=== PATIENT | female | born 1960 | race Caucasian/White ===

== ENCOUNTER 2017-05-15 12:04 | Emergency (ER) | payer BC ==
--- NOTE | 2017-05-15 14:02 | UC ---
Back Pain HPI - HPI Summary HPI Summary: recurrent history of low back pain and muscle strain with radiation to the right leg. No paresthesias or urinary incontinence. Has been using ice, heat and ibuprofen about 1600mg yesterday without relief. Muscle relaxants have been helpful in the past. Relieves by sleeping with a pillow between her legs. Was doing gloria regularly, but stopped, and now has increasing weight, blood pressure and recurrent back pain. No urinary or fecal incontinence. - History of Current Complaint Chief Complaint: UCBackPain Stated Complaint: BACK PAIN Time Seen by Provider: 05/15/17 13:51 Hx Obtained From: Patient Onset/Duration: Gradual Onset, Lasting Days - 2 Timing: Constant Severity Initially: Moderate Severity Currently: Moderate Pain Intensity: 7 Pain Scale Used: 0-10 Numeric Back Pain: Is Diffuse Character: Dull, Aching Aggravating Factor(s): Movement, Walking Alleviating Factor(s): Rest, Cold Associated Signs And Symptoms: Positive: Negative Related History: Previous Back Injury - Risk Factors AAA Risk Factors: Negative TAD Risk Factors: Negative Cauda Equina Risk Factors: Negative Epidural Abscess Risk Factors: Negative - Allergies/Home Medications Allergies/Adverse Reactions: Allergies Allergy/AdvReac Type Severity Reaction Status Date / Time No Known Allergies Allergy Verified 05/15/17 13:39 PMH/Surg Hx/FS Hx/Imm Hx Endocrine History: Hypothyroidism Cardiovascular History: Hypertension - Surgical History Surgical History: Yes Surgery Procedure, Year, and Place: HYSTERECTOMY. 2 C-SECTS. R ROTAR CUFF REPAIR. CHOLECYSTECTOMY. R ANKLE SX - Family History Known Family History: Positive: Cardiac Disease - mother of CHF, Hypertension, Other - father of CA colon - Social History Occupation: Employed Full-time - [employer] [place] Alcohol Use: Occasionally Substance Use Type: None Smoking Status (MU): Never Smoked Tobacco Type: Cigarettes Have You Smoked in the Last Year: No When Did the Patient Quit Smoking/Using Tobacco: 4 yrs ago - Immunization History Most Recent Influenza Vaccination: 2017 Review of Systems Constitutional: Fatigue - gradually increasing fatigue. Has been off levothyroxine for a month because PMD will not renew due to bill balance. Skin: Negative Eyes: Negative ENT: Negative Respiratory: Negative Cardiovascular: Other - stopped lisinopril when blood pressure went too low-- decreased from 20 to 10 and then stopped. Has not been tracking BP as advised. Gastrointestinal: Negative Genitourinary: Negative Motor: Negative Neurovascular: Negative Musculoskeletal: Myalgia Neurological: Negative Psychological: Negative Is Patient Immunocompromised?: No All Other Systems Reviewed And Are Negative: Yes Physical Exam Triage Information Reviewed: Yes Appearance: Well-Appearing, Pain Distress - moderate., Obese Vital Signs: Initial Vital Signs Temp 96.6 F 05/15/17 13:41 Pulse 73 05/15/17 13:41 Resp 16 05/15/17 13:41 BP 169/100 05/15/17 13:41 Pulse Ox 99 05/15/17 13:41 Eyes: Positive: Conjunctiva Clear Respiratory: Positive: Lungs clear, Normal breath sounds Cardiovascular: Positive: RRR, No Murmur Abdomen Description: Positive: Nontender, No Organomegaly, Soft Musculoskeletal: Positive: ROM Limited @ - lumbar spine FF to 30 degrees, Antalgic gait. SLR to 90 degrees on the left, to 85 on the right. Hip rom is normal. Normal heel and toe walking. Neurological: Positive: Alert, Muscle Tone Normal Psychological Exam: Normal Skin Exam: Normal Back Pain Course/Dx - Course Course Of Treatment: add muscle relaxant to promote muscle relaxation and sleep. Continue nsaid--minimal use due to htn. resume thyroid medication and lisinopril pending re-establishment with Dr. Montelongo. - Differential Dx/Diagnosis Differential Diagnosis/HQI/PQRI: Herniated Disc, Strain, Sprain Provider Diagnoses: acute low back strain. hypertension. hypothyroidism Discharge - Discharge Plan Condition: Stable Disposition: HOME Prescriptions: Cyclobenzaprine TAB* [Flexeril 10 MG TAB*] 10 mg PO BEDTIME PRN #30 tab PRN Reason: Spasms - Back Levothyroxine TAB* [Synthroid 125 MCG TAB*] 125 mcg PO 0800 #90 tab Lisinopril [Zestril 5 MG-] 5 mg PO DAILY #90 tab Patient Education Materials: Low Back Strain (ED) Additional Instructions: use flexeril to relieve back spasm, continuing use of ibuprofen as needed. Resume use of lisinopril 5mg once daily with regular check of blood pressure. Ensure that you do home blood pressure checks at least twice per week. Resume use of levothyroxine once daily for treatment of thyroid dysfunction.
[2017-05-15 14:18] VITALS: BP 178/106
== END 2017-05-15 14:51 | disposition home or self-care (01) ==
LOC: UCCORT 12:04
DX: S39.012A Strain of muscle, fascia and tendon of lower back, initial encounter (principal); E03.9 Hypothyroidism, unspecified; I10 Essential (primary) hypertension; E07.9 Disorder of thyroid, unspecified; X58.XXXA Exposure to other specified factors, initial encounter
CPT/HCPCS: 99212; G0463

== ENCOUNTER 2022-07-22 05:36 | Observation (INO) ==
[~2022-07-22 05:36] MED LIST: Naloxone 0.4 mg VIAL 0.4 mg/ml 1 ml VIAL IV PRN; Ondansetron 4 mg VIAL 2 MG/ML 2 ml VIAL IV PRN; fentaNYL 100 mcg/2 ml 50 MCG/ML VIAL IV PRN
[2022-07-22] MEDS ORDERED: Buffered Lidocaine 1% SYRIN 1 ml INTRADERM ONE (06:00)
[2022-07-22] MEDS ORDERED: Lactated Ringers 1000 ml BAG 1,000 ML IV SCH ×2 (06:00→09:00)
[2022-07-22] MEDS ORDERED: ceFAZolin 2 GM PREMIX 2 GM/50 ML BAG ONE (06:24)
[2022-07-22] MEDS ORDERED: Ropivacaine 5 MG/ML 20 ML VIAL 0.5% (100 MG) ONE (07:00)
[2022-07-22] MEDS ORDERED: Propofol 10 MG/ML 20 ML BTL ONE (07:15)
[2022-07-22] MEDS ORDERED: fentaNYL 250 mcg/5 ml 50 MCG/ML 5 ml VIAL (250 MCG) ONE (07:15)
[2022-07-22] MEDS ORDERED: Midazolam 2 mg/2 ml VIAL 1 mg/ml 2 ml VIAL (2 mg) ONE (07:15)
[2022-07-22] MEDS ORDERED: Lidocaine 2% PF 5 ML VIAL ONE (07:15)
[2022-07-22] MEDS ORDERED: Rocuronium 50 mg VIAL 10 mg/ml 5 ml VIAL (50 mg) ONE (07:15)
[2022-07-22] MEDS ORDERED: Ondansetron 4 mg VIAL 2 MG/ML 2 ml VIAL ONE (08:09)
[2022-07-22] MEDS ORDERED: Ketamine HCL 50 mg/ml 10 ml VIAL (500 MG) ONE (08:09)
[2022-07-22] MEDS ORDERED: Dexamethasone IV 4 MG/ML VIAL 1 ml VIAL ONE (08:09)
[2022-07-22] MEDS ORDERED: Acetaminophen IV 1 GM/100ML 1,000 MG/100 ML BAG IV ONE (08:26)
[2022-07-22] MEDS ORDERED: Ondansetron 4 mg VIAL 2 MG/ML 2 ml VIAL IV PRN (08:59)
[2022-07-22] MEDS ORDERED: Morphine 2 MG/ML SYRINGE IV PRN (08:59)
[2022-07-22] MEDS ORDERED: Ondansetron ODT 4 mg TAB 4 MG TAB PO PRN (08:59)
[2022-07-22] MEDS ORDERED: Magnesium Hydroxide LIQ 30 ML UDC PO PRN (08:59)
[2022-07-22] MEDS ORDERED: Lactulose 30 ml UDC PO PRN (08:59)
[2022-07-22] MEDS ORDERED: Magnesium Hydroxide LIQ 30 ML UDC PO SCH (09:00)
[2022-07-22] MEDS ORDERED: Vitamin THERAPEUTIC TAB PO SCH (09:00)
[2022-07-22] MEDS ORDERED: fentaNYL 100 mcg/2 ml 50 MCG/ML VIAL ONE (11:21)
[2022-07-22 14:09] VITALS: BP 101/66
[2022-07-22] MEDS ORDERED: ceFAZolin 1 GM ADVAN 1 GM in NS 0.9% 50 ML 50 ML IVPB SCH (16:00)
== END 2022-07-22 16:30 | disposition home or self-care (01) ==
LOC: AA 05:36 → INTOOBSV 05:36 → SSU 08:59
PROVIDERS: ADMIT Orthopaedic Surgery Adult Reconstructive Orthopaedic Surgery; ATTEND Orthopaedic Surgery Adult Reconstructive Orthopaedic Surgery

== ENCOUNTER 2023-08-29 09:10 | Observation (INO) ==
[~2023-08-29 09:10] MED LIST changes: +Buffered Lidocaine 1% SYRIN 1 ml INTRADERM ONE; +Famotidine IV 10 MG/ML 2 ml VIAL (20 mg) IV ONE; +Lactated Ringers 1000 ml BAG 1,000 ML IV SCH; -fentaNYL 100 mcg/2 ml 50 MCG/ML VIAL IV PRN
[2023-08-29] MEDS ORDERED: Chlorhexidine MOUTHWASH 0.12% 15 ML UDC ONE (09:29)
[2023-08-29] MEDS ORDERED: ceFAZolin 2 GM in NS PREMIX 2 GM/100 ML BAG IVPB ONE (09:29)
[2023-08-29] MEDS ORDERED: Famotidine IV 10 MG/ML 2 ml VIAL (20 mg) ONE (09:47)
[2023-08-29 09:52] LABS: Rapid COVID-19 Molecular Undetected (Undetected)
[2023-08-29] MEDS ORDERED: fentaNYL 100 mcg/2 ml 50 MCG/ML VIAL ONE ×3 (10:30→15:02)
[2023-08-29] MEDS ORDERED: Midazolam 2 mg/2 ml VIAL 1 mg/ml 2 ml VIAL (2 mg) ONE (10:30)
[2023-08-29] MEDS ORDERED: Rocuronium 50 mg VIAL 10 mg/ml 5 ml VIAL (50 mg) ONE ×2 (10:31→14:08)
[2023-08-29] MEDS ORDERED: Propofol 10 MG/ML 20 ML BTL ONE ×2 (10:31→14:49)
[2023-08-29] MEDS ORDERED: Lidocaine 2% PF 5 ML VIAL ONE (10:31)
[2023-08-29] MEDS ORDERED: Gelfoam Sponge SIZE 100 SPONGE ONE (12:09)
[2023-08-29] MEDS ORDERED: Thrombin 5,000 UNITS(BOVINE) for Ultrasound Guided Pseudoaneursym ONE ×2 (12:09→14:23)
[2023-08-29] MEDS ORDERED: ceFAZolin VIAL VIAL ONE (12:09)
[2023-08-29] MEDS ORDERED: Lidocaine 1% w EPI 1:100,000 MDV 20 ML VIAL ONE (12:09)
[2023-08-29] MEDS ORDERED: Dexamethasone IV 4 MG/ML VIAL 1 ml VIAL ONE (12:55)
[2023-08-29] MEDS ORDERED: Ondansetron 4 mg VIAL 2 MG/ML 2 ml VIAL ONE (12:55)
[2023-08-29] MEDS ORDERED: Acetaminophen IV 1 GM/100ML 1,000 MG/100 ML BAG IV ONE (13:45)
[2023-08-29] MEDS ORDERED: Calcium Carb (TUMS) 500 mg CHEW TAB PO PRN (14:41)
[2023-08-29] MEDS ORDERED: Phenol 1.4% Throat Spray BTL MT PRN (14:41)
[2023-08-29] MEDS ORDERED: Dextran 70/Hypromellose Tears Eye Drops 15 ml BTL (for Artificials Tears) BOTH EYES PRN (14:41)
[2023-08-29] MEDS ORDERED: Senna TAB 8.6 mg TAB PO PRN (14:41)
[2023-08-29] MEDS ORDERED: HYDROcodone/ACETAMIN 5/325 mg TAB PO PRN (14:41)
[2023-08-29] MEDS ORDERED: Ondansetron 4 mg VIAL 2 MG/ML 2 ml VIAL IV PRN (14:41)
[2023-08-29] MEDS ORDERED: Benzocaine/Menthol LOZ MT PRN (14:41)
[2023-08-29] MEDS ORDERED: Morphine 2 MG/ML SYRINGE IV PRN (14:41)
[2023-08-29] MEDS ORDERED: Lactated Ringers 1000 ml BAG 1,000 ML IV SCH (15:00)
[2023-08-29] MEDS: fentaNYL 100 mcg/2 ml 50 MCG/ML VIAL IV PRN ×4 (15:04→15:29)
[2023-08-29] MEDS: HYDROcodone/ACETAMIN 5/325 mg TAB PO PRN ×2 (18:10→22:22)
[2023-08-30] MEDS: HYDROcodone/ACETAMIN 5/325 mg TAB PO PRN (02:49)
[2023-08-30 06:06] VITALS: BP 98/66
== END 2023-08-30 10:35 | disposition home or self-care (01) ==
LOC: OR 09:10 → SSU 09:10
PROVIDERS: ADMIT Neurological Surgery; ATTEND Neurological Surgery